=== PATIENT | male | born 1950 | race Caucasian/White ===

== ENCOUNTER → 2016-08-21 | Outpatient (CLI) | payer OTHER, MEDICARE ==
[~2016-08-21] MED LIST: AMINTAB13 PO; AMLO-110 PO; ASPI-435 PO; ATOR-54 PO; LOSA1TAB38 PO; MULT-884 PO; OPTIRAY 320 IV PRN; SILD100T PO
--- NOTE | 2016-08-21 18:07 | DIAGNOSTIC IMAGING REPORT ---
CT OF THE ABDOMEN AND PELVIS WITH CONTRAST CLINICAL HISTORY: Left-sided abdominal pain. Evaluate for acute diverticulitis. COMPARISON STUDY: None. TECHNIQUE: Following IV administration of 115 mL of Optiray-320, axial images of the abdomen and pelvis were obtained from the lung bases to the proximal femurs. Images were reviewed in the axial, sagittal, and coronal planes. IV contrast was administered without complication. Oral contrast was administered. CT DOSE: 1133.07 mGy.cm FINDINGS: Visualized portions of the lower chest demonstrate dilatation of visualized portions of the ascending aorta which measures up to 4.4 cm. No dissection is identified within visualized portions of the aorta. This extensive coronary artery calcification. No pneumatosis, free air or portal venous gas is present. Liver, spleen, adrenal glands, kidneys and pancreas are normal. There is no hydronephrosis. There is no evidence for a bowel obstruction. There is left colon diverticulosis. Note is made of moderate infiltration and wall thickening of the distal descending colon. There is no free air or abscess. Skeletal structures are unremarkable with the exception of degenerative changes within the lumbar spine. IMPRESSION: 1. Acute diverticulitis of the distal descending colon. Moderate associated inflammation. No free air or abscess. 2. Mild dilatation of visualized portions of the ascending aorta, measuring approximately 4.4 cm. A nonemergent CTA of the chest is recommended. Electronically signed by: Justin Wong M.D. 08/21/2016 6:05 PM Dictated Date/Time: 08/21/2016 6:00 PM
== END | disposition home or self-care (01) ==
LOC: C.CTS 15:20
PROVIDERS: ATTEND Internal Medicine Geriatric Medicine
DX: K57.92 Diverticulitis of intestine, part unspecified, without perforation or abscess without bleeding (principal)

== ENCOUNTER → 2016-09-04 | Outpatient (CLI) | payer OTHER, MEDICARE ==
--- NOTE | 2016-09-04 10:12 | DIAGNOSTIC IMAGING REPORT ---
CT ANGIOGRAM OF THE CHEST COMBO CLINICAL HISTORY: Aortic aneurysm. COMPARISON STUDY: Abdominal CT dated 08/21/2016. TECHNIQUE: Before and follow the IV administration of 93 cc of Optiray 320, CT angiogram of the chest was performed from the thoracic inlet to the upper abdomen. Images are reviewed in the axial, sagittal, and coronal planes. 3-D MIPS images are created and assessed. IV contrast was administered without complication. CT DOSE: 1206.48 mGy.cm FINDINGS: Thyroid: Imaged portions of the thyroid gland are normal in size and attenuation. Thoracic aorta: There is mild atherosclerotic calcification of the thoracic aorta. No intracranial hematoma is seen on the unenhanced series. There is mild aneurysmal dilatation of the ascending thoracic aorta which measures up to 4.5 cm in diameter. The remainder of the thoracic aorta is normal in caliber. The mid arch measures up to 3.1 cm, and the descending thoracic aorta measures up to 2.8 cm. No dissection is seen. The arch demonstrates bovine variant anatomy. The arch vessels are widely patent. Heart: The heart is mildly enlarged and there is trace pericardial fluid. The coronary arteries are densely calcified. The pulmonary trunk is normal in caliber. Lungs and pleural spaces: There or 3 mm and 4 mm pulmonary nodules at the left lung base seen on axial images #227 and #234. A 3 mm left apical nodule is seen on image #41. Tiny foci of pleural based nodularity are noted along the left major fissure. No airspace consolidation or pleural effusion is identified. There is bibasilar atelectasis. The trachea and central airways are clear. Mediastinum: There is no mediastinal lymphadenopathy. Laura: Clear. Axillae: There is no axillary lymphadenopathy. Upper abdomen: There is a small hiatal hernia. The partially visualized kidneys demonstrate cortical atrophy. There are scattered diverticula identified in the partially imaged left colon. Skeletal structures: No lytic or blastic bony lesions are seen. IMPRESSION: 1. There is mild aneurysmal dilatation of the ascending thoracic aorta which measures up to 4.5 cm in diameter. 2. The remainder of the thoracic aorta is normal in caliber. No dissection is seen. 3. Cardiomegaly. 4. There is no airspace consolidation or pleural effusion. 5. There are small pulmonary and pleural-based nodules measuring up to 4 mm. These are indeterminant but of low suspicion and can be followed as per the Fleischner criteria if clinically warranted. See below. 6. Additional changes as above. Please refer to below summary of Fleischner criteria recommendations for follow-up of incidental CT nodules (Masood Cardona, Guidelines for management of small pulmonary nodules detected on CT scans: A statement from the Fleischner Society, Radiology 237: [phone].) Low Risk Patient: Minimal or no smoking or other known risk factors for malignancy <=4 mm: No follow-up needed. >4-6 mm: Initial follow-up CT at 12 months; if unchanged, no further follow-up. >6-8 mm: Initial follow-up CT at 6-12 months then at 18-24 months if no change. >8 mm: Follow-up CT at \R\3, 9, 24 months, or PET and/or biopsy. High Risk Patient: History of smoking or other known risk factors <=4 mm: Follow-up at 12 months; if unchanged, no further follow-up. >4-6 mm: Initial follow-up CT at 6-12 months then at 18-24 months if no change. >6-8 mm: Initial follow-up CT at 3-6 months then at 9-12 and 24 months if no change. >8 mm: Same as low risk patient. Note: Nodule size measured as average of length and width. Ground glass or partly solid nodules may require longer follow-up to exclude indolent adenocarcinoma. Electronically signed by: Brian Villarreal M.D. 09/04/2016 10:10 AM Dictated Date/Time: 09/04/2016 10:00 AM
== END | disposition home or self-care (01) ==
LOC: C.CTS 09:23
PROVIDERS: ATTEND Internal Medicine
DX: I71.9 Aortic aneurysm of unspecified site, without rupture (principal)

== ENCOUNTER → 2016-10-04 | Outpatient (CLI) | payer OTHER, MEDICARE ==
[~2016-10-04] MED LIST changes: -OPTIRAY 320 IV PRN
[2016-10-04 10:50] LABS: BASO % 0.8 %; BASO ABS # 0.04 K/uL (0-0.2); COMPLETE YES; EOS % 4.1 %; HEMATOCRIT 40.4 % (42-52); IG% 0.4 %; LYMPH ABS # 1.28 K/uL (1.2-3.4); MEAN CELL VOLUME 93.1 fL (80-100); MEAN CORPUSCULAR HEMOGLOBIN 32.9 pg (25-34); MEAN CORPUSCULAR HGB CONC 35.4 g/dl (32-36); MEAN PLATELET VOLUME 10.3 fL (7.4-10.4); NEUT % 61.7 %; PLATELET COUNT 204 K/uL (130-400); RED BLOOD COUNT 4.34 M/uL (4.7-6.1); WHITE BLOOD COUNT 5.33 K/uL (4.8-10.8)
[2016-10-04 11:22] LABS: ALT/SGPT 36 U/L (12-78); AST/SGOT 30 U/L (15-37); BLOOD UREA NITROGEN 27 mg/dl (7-18); BUN/CREATININE RATIO 28.3 (10-20); CALCIUM 9.3 mg/dl (8.5-10.1); CARBON DIOXIDE 25 mmol/L (21-32); CHLORIDE 105 mmol/L (98-107); CHOLESTEROL 153 mg/dl (0-200); CREATININE 0.95 mg/dl (0.60-1.40); GLUCOSE 104 mg/dl (70-99); POTASSIUM 4.3 mmol/L (3.5-5.1); SODIUM 138 mmol/L (136-145); TRIGLYCERIDES 185 mg/dl (0-150); VERY LOW DENSITY LIPOPROT CALC 37 mg/dl
[2016-10-04 11:29] LABS: ALB/GLOB RATIO 1.1 (0.9-2); ALKALINE PHOSPHATASE 99 U/L (45-117); CHOLESTEROL/HDL RATIO 2.8; HDL CHOLESTEROL 55 mg/dl; LDL CHOLESTEROL CALCULATED 61 mg/dl
== END | disposition home or self-care (01) ==
LOC: C.LABBC 08:02
PROVIDERS: ATTEND Internal Medicine
DX: R94.31 Abnormal electrocardiogram [ECG] [EKG] (principal)

== ENCOUNTER → 2017-04-03 | Outpatient (CLI) | payer OTHER, MEDICARE ==
--- NOTE | 2017-04-03 09:11 | DIAGNOSTIC IMAGING REPORT ---
(CHEST) THORAX WITHOUT CT DOSE: 597.59 mGycm HISTORY: Aneurysm. Pulmonary nodule. ASCENDING AORTIC ANEURYSM TECHNIQUE: Multiaxial CT images of the chest were performed without contrast. A dose lowering technique was utilized adhering to the principles of ALARA. COMPARISON: 09/04/2016 FINDINGS: 4.5 cm aneurysmal dilatation a sending thoracic aorta. This is unchanged in the prior study. Micronodularity within the lungs unaltered. There are no new or interval findings. There is no significant mediastinal or hilar adenopathy. There is calcification of coronary arterial vasculature. IMPRESSION: 1. Stable evaluation of chest compared to the prior study. 2. Stable 4.5 cm aneurysmal dilatation a sending thoracic aorta. 3. Stable micronodular change of the chest with no new interval or progressive process. The above report was generated using voice recognition software. It may contain grammatical, syntax or spelling errors. Electronically signed by: Damon Guevara M.D. 04/03/2017 9:10 AM Dictated Date/Time: 04/03/2017 9:06 AM
== END | disposition home or self-care (01) ==
LOC: C.CTS 08:39
PROVIDERS: ATTEND Surgery Vascular Surgery
DX: I71.2 Thoracic aortic aneurysm, without rupture (principal)

== ENCOUNTER → 2017-10-21 | Outpatient (CLI) | payer OTHER, MEDICARE ==
[2017-10-21 11:57] LABS: BASO % 0.3 %; BASO ABS # 0.03 K/uL (0-0.2); EOS % 1.8 %; EOS ABS # 0.17 K/uL (0-0.5); HEMATOCRIT 40.2 % (42-52); HEMOGLOBIN 13.8 g/dL (14.0-18.0); IG# 0.05 K/uL (0.00-0.02); MEAN CELL VOLUME 94.4 fL (80-100); MEAN CORPUSCULAR HEMOGLOBIN 32.4 pg (25-34); MEAN CORPUSCULAR HGB CONC 34.3 g/dl (32-36); MEAN PLATELET VOLUME 10.7 fL (7.4-10.4); MONO % 10.1 %; MONO ABS # 0.95 K/uL (0.11-0.59); NEUT % 71.3 %; NEUT ABS # 6.69 K/uL (1.4-6.5); PLATELET COUNT 159 K/uL (130-400); RED CELL DISTRIBUTION WIDTH CV 13.8 % (11.5-14.5); RED CELL DISTRIBUTION WIDTH SD 47.3 fL (36.4-46.3); WHITE BLOOD COUNT 9.39 K/uL (4.8-10.8)
[2017-10-21 12:13] LABS: ALBUMIN 3.8 gm/dl (3.4-5.0); ALKALINE PHOSPHATASE 90 U/L (45-117); ALT/SGPT 25 U/L (12-78); AST/SGOT 22 U/L (15-37); BLOOD UREA NITROGEN 21 mg/dl (7-18); CALCIUM 9.1 mg/dl (8.5-10.1); CARBON DIOXIDE 24 mmol/L (21-32); CHOLESTEROL 154 mg/dl (0-200); CREATININE 0.89 mg/dl (0.60-1.40); GLUCOSE 95 mg/dl (70-99); LDL CHOLESTEROL CALCULATED 54 mg/dl; POTASSIUM 4.2 mmol/L (3.5-5.1); SODIUM 136 mmol/L (136-145); TOTAL PROTEIN 7.4 gm/dl (6.4-8.2)
== END | disposition home or self-care (01) ==
LOC: C.LABBC 07:53
PROVIDERS: ATTEND Internal Medicine
DX: R91.8 Other nonspecific abnormal finding of lung field (principal); Z11.59 Encounter for screening for other viral diseases

== ENCOUNTER → 2017-10-30 | Outpatient (CLI) | payer OTHER, MEDICARE ==
--- NOTE | 2017-10-30 09:02 | DIAGNOSTIC IMAGING REPORT ---
(CHEST) THORAX WITHOUT CLINICAL HISTORY: 66 years-old Male presenting with R91.8 Pulmonary nodules. TECHNIQUE: Multidetector CT imaging of the chest was performed without the use of intravenous contrast. IV contrast: None. A dose lowering technique was used consistent with the principles of ALARA (as low as reasonably achievable). COMPARISON: 04/03/2017. CT DOSE (mGy.cm): The estimated cumulative dose is 652.06 mGy.cm. FINDINGS: Deck Supervisor topogram: Unremarkable. On soft tissue windows, normal thyroid and thoracic inlet. No axillary, supraclavicular, or mediastinal lymphadenopathy. Evaluation of the cheyanne limited without intravenous contrast. Atherosclerosis of the aorta. Ascending aorta measures 4.5 cm in diameter, which is unchanged. Normal heart size. Coronary artery calcification. No pericardial or pleural effusion. Borderline hepatic steatosis. On lung windows, dependent subpleural reticulation and bandlike opacities. This is greater in the right lower lobe but noted to a lesser extent in the left lower lobe. This is unchanged from prior and may indicate chronic postinfectious or postinflammatory scarring. Subtle suggestion of bronchiectasis in the posterior basal and medial basal right lower lobe. Punctate solid fissural nodule in the right lower lobe (series 4 image 168), unchanged. No new nodule. Central airways patent. On bone windows, degenerative changes of the spine. IMPRESSION: 1. Stable subpleural dependent reticulation and bandlike opacities, which likely relate to chronic postinfectious or postinflammatory scarring. This is further evidenced by subtle bronchiectasis in the posterior basal and medial basal right lower lobe. No acute intrathoracic pathology. 2. Stable minimal punctate pulmonary nodules. No new nodule. 3. Stable ectasia of the ascending aorta, measuring 4.5 cm in diameter. Electronically signed by: Eulogio Shi M.D. 10/30/2017 9:01 AM Dictated Date/Time: 10/30/2017 8:53 AM
== END | disposition home or self-care (01) ==
LOC: C.CTS 08:23
PROVIDERS: ATTEND Internal Medicine
DX: R91.8 Other nonspecific abnormal finding of lung field (principal)

== ENCOUNTER 2022-12-28 06:00 | Observation (INO) ==
--- NOTE | 2022-11-20 10:35 | PAT Medication Instructions ---
Medication Instructions Date of Service November 20, 2022 Home Medications Medication Instructions Recorded celecoxib 200 mg capsule 200 mg PO DAILY PRN pain #30 caps 06/26/21 celecoxib 200 mg capsule 200 mg PO DAILY PRN pain amlodipine 10 mg tablet 10 mg PO QAM aspirin 81 mg tablet,delayed release 81 mg PO QAM atorvastatin 40 mg tablet 40 mg PO QAM losartan 100 mg tablet 100 mg PO QAM tramadol 50 mg tablet 50 mg PO Q8H PRN pain ASK your surgeon for instructions celecoxib 200 mg capsule 200 mg PO DAILY PRN pain DO NOT take the morning of surgery losartan 100 mg tablet 100 mg PO QAM Take morning of surgery With a small sip of water, OTHERWISE NOTHING TO EAT OR DRINK AFTER MIDNIGHT: amlodipine 10 mg tablet 10 mg PO QAM aspirin 81 mg tablet,delayed release 81 mg PO QAM (continue as normal unless told otherwise by surgeon) atorvastatin 40 mg tablet 40 mg PO QAM tramadol 50 mg tablet 50 mg PO Q8H PRN pain (if needed) Other Notes If you have any questions please call us at [phone] or [phone] or [phone] or [phone]
--- NOTE | 2022-11-28 11:42 | Anesthesiology Consultation ---
Date of Service November 28, 2022 Assessment & Plan (1) Encounter for pre-operative examination: Chart Review Chart Review: Acceptable Risk for Surgery and Patient seen in Pre Admission Testing -Pt is NOT an Outpatient Joint candidate due to comorbidities Per PAT appt on 11/28/22, patient denies any recent travel or large group activities. Pt is vaccinated for Covid. Will leave to surgeon's discretion if preop Covid testing needed. Educated on importance of using Covid precautions one week prior to surgery Last seen by PCP 10/15/22= HypertensionBP at goal. Aortic root/ascending aortic dilationdiscussed echocardiogram February 2022. Suggested follow-up with vascular surgerypatient will consider. Discussed repeat chest CT. Hyperlipidemiacoronary artery calcification by CTincrease atorvastatin. LUTSno formal urology evaluation in some time. Suggested referral back to urologypatient agrees. Advanced arthritis right hipfollowing with orthopedics. Unfortunately needs replacement. Patient will discuss with Ortho. Follow-up in 6-7 months. (Discussed with Dr. Arzola- patient can proceed as scheduled) Teaching & Discussion Pre-Anesthesia Teaching/Discussion Notes: Instructed NPO after midnight before surgery,except medications with 15 cc of water. Medication instructions provided according to the PAT guidelines. History Surgery Operation Date: 12/28/22 11:45 Proposed Procedures p Right Total Hip Arthroplasty Anterior - Gil Laws DO Height/Weight Height: 5 ft 9 in Weight: 103.6 kg Allergies Allergy/AdvReac Type Severity Reaction Status Date / Time No Known Allergies Allergy Verified 11/20/22 09:42 Medications Home Medications Medication Instructions Recorded Confirmed Last Taken celecoxib 200 mg capsule 200 mg PO DAILY PRN pain #30 caps 06/26/21 11/20/22 Unknown amlodipine 10 mg tablet 10 mg PO QAM 11/20/22 11/20/22 Unknown aspirin 81 mg tablet,delayed 81 mg PO QAM 11/20/22 11/20/22 Unknown release atorvastatin 40 mg tablet 40 mg PO QAM 11/20/22 11/20/22 Unknown losartan 100 mg tablet 100 mg PO QAM 11/20/22 11/20/22 Unknown tramadol 50 mg tablet 50 mg PO Q8H PRN pain 11/20/22 11/20/22 Unknown tramadol 50 mg tablet 50 mg PO Q6H PRN pain #30 tabs 11/26/22 Unknown Past Medical History Medical History (Updated 11/29/22 @ 09:38 by Krystal Winter PA-C) Anemia BORDERLINE Coronary artery calcification Noted on CT scan- atorvastatin increased to 40mg daily 09/2022 Dilatation of thoracic aorta 4.5cm in diameter per 02/2022 ECHO (ascending aortic aneurysm 4.5cm on 2019 CT scan- unchanged from prior- aneurysm stable) Mildly dilated aortic arch (4.0cm) per 02/2022 ECHO Enlarged prostate without lower urinary tract symptoms (luts) HTN (hypertension) Hyperlipidemia Pulmonary nodules ASYMPTOMATIC/DX YRS AGO/INCIDENTAL FINDING/NO KNOWN RE SCAN Exercise / Class Metabolic Activity III < 4 Walking/Shop/Light housework (no chest pain or SOB with flat surface ambulation- started using cane recently ) Past Family History Family History Father , AGE 83 Myocardial infarction Heart disease Coronary heart disease Hypertension Mother , AGE 84 COPD (chronic obstructive pulmonary disease) Congestive heart failure Diabetes Hypertension Sister Diverticulitis Skin cancer Brother Hypertension Denies family history of Ovarian cancer Prostate cancer Dementia Breast cancer Lung cancer Colorectal cancer Stroke Past Surgical History Surgical History H/O tooth extraction History of colonoscopy History of surgery SKIN LESIONS/CYSTS REMOVED- BENIGN Past Anesthesia History No Hx of Anesthesia Complications (no hx of GA ) and No Family Hx of Anesthesia Complications History of PONV No Hx of PONV and No Hx of Motion Sickness Social History Smoking Status: Former smoker tobacco type: cigarettes and cigars Do You Dip or Chew Tobacco: No Smoking End Date: 15 YRS AGO Hx Alcohol Use: Yes Alcohol type: hard liquor alcohol intake frequency: other Alcohol Intake Frequency Comment: 2-3 A WEEK Hx Substance Use: No substance use type: does not use Review of Systems Patient denies chest pain, shortness of breath, dyspnea on exertion, reflux, cough, wheezing, palpitations. No hx of seizures, stroke, SC, apnea/snoring. No hx of blood clots or blood transfusions Physical Exam Vital Signs VITALS BP 136/82 P 90 TEMP 98.3 SP02 98% R 16ESP Constitutional no acute distress ENMT Mouth: + small oral opening; no TMJ clicking Thyromental Distance: > or= 3.5 Finger Breadths (4.0) Mallampati Class: III Missing bottom molars Bottom partial denture Neck + limited neck extension (significant) Respiratory normal respiratory effort; no respiratory distress Auscultation: lungs clear to auscultation bilaterally; no wheezes Cardiovascular Rate/Rhythm: regular rate and regular rhythm Heart Sounds: no murmur Vessels: no carotid bruit Musculoskeletal Spine: no pain with cervical ROM (only stiffness) Extremities: extremities normal to inspection Psychiatric Orientation: alert Lab Results Anesthesia Preop Results Results Anesthesia Widget: WBC 8.71 K/ul (4.8-10.8) 11/28/22 Hgb 13.4 g/dl (14.0-18.0) L 11/28/22 Hct 38.5 % (42.0-52.0) L 11/28/22 Plt 179 K/uL (130-400) 11/28/22 Na 137 mmol/L (136-145) 11/28/22 K 4.3 mmol/L (3.5-5.1) 11/28/22 Cl 104 mmol/L (98-107) 11/28/22 CO2 26 mmol/L (21-32) 11/28/22 BUN 24 mg/dl (6-23) H 11/28/22 Creat 0.99 mg/dl (0.6-1.4) 11/28/22 Glucose Level 81 mg/dl (70-99(Fasting)) 11/28/22 PT 10.4 Seconds (9.0-12.0) 11/28/22 PTT 26.6 Seconds (21.0-31.0) 11/28/22 INR 0.9 (0.9-1.1) 11/28/22 HA1c 5.4 % (4.5-5.6) 10/16/22 Blood Type O Positive 11/28/22 Antibody Screen NEGATIVE 11/28/22 Testing Electrocardiogram Date: 11/28/22 Findings: + NSR @ (81bpm ) Left axis deviation Chest X-Ray Date: 11/28/22 FINDINGS: Lung volumes are normal. Lungs are clear. There is no pneumothorax or pleural effusion. Mild cardiomegaly. Mediastinal contours are normal. There is no evidence for pulmonary edema. IMPRESSION: No acute cardiopulmonary findings. Stable cardiomegaly. Echocardiogram Date: 03/06/22 EF: 55-60% LV Function: normal RWMA: + none Other Findings: + LVH (borderline/concentric) and + diastolic dysfunction (Grade I ) Valvular Disease: + MR (Mild MR ) Mild AR Mildly dilated ascending aorta (4.5 cm in diameter) Mildly dilated aortic arch (4.0 cm in diameter) COVID-19 Risk Screen Screening Information COVID-19 Screen Date: 11/28/22 Exposure 21 Days Family/Household +COVID Last 21 Days: No Exposure 10 Days Any COVID Exposure Last 10 Days: No Symptoms Last 10 Days Experienced COVID Sx Last 10 Days: No + COVID 0-90 Days COVID + in Last 0-90 Days: No Risk Plan COVID Risk Plan: No Risk Identified Patient Education COVID Preop Screening Education Complete: Yes
--- NOTE | 2022-12-27 06:42 | History & Physical Report ---
Date of Service December 27, 2022 Assessment & Plan (1) Arthritis of right hip: We will proceed with a right anterior total hip arthroplasty. Postoperatively he will be started on aspirin for DVT prophylaxis and kept overnight in the hospital for postop medical management. He plans to use energy physical therapy upon discharge. History of Present Illness Chief Complaint: Osteoarthritis of the right hip. Primary Care Provider: Eulogio Parikh MD Brian is a pleasant 71-year-old male who has been dealing with chronic increasing right hip pain. It has been going on for years. X-rays have shown advanced arthritis of the hip. He is really struggling with his hip. He is having trouble putting on his shoes. He is having trouble walking long distances. After failing conservative treatment, he has elected proceed with a right anterior total of arthroplasty. Allergies Allergy/AdvReac Type Severity Reaction Status Date / Time No Known Allergies Allergy Verified 11/20/22 09:42 Home Medications Medication Instructions Recorded Confirmed Type celecoxib 200 mg capsule 200 mg PO DAILY PRN pain #30 caps 06/26/21 11/20/22 Rx amlodipine 10 mg tablet 10 mg PO QAM 11/20/22 11/20/22 History aspirin 81 mg tablet,delayed 81 mg PO QAM 11/20/22 11/20/22 History release atorvastatin 40 mg tablet 40 mg PO QAM 11/20/22 11/20/22 History losartan 100 mg tablet 100 mg PO QAM 11/20/22 11/20/22 History tramadol 50 mg tablet 50 mg PO Q8H PRN pain 11/20/22 11/20/22 History tramadol 50 mg tablet 50 mg PO Q6H PRN pain #30 tabs 11/26/22 Rx tramadol 50 mg tablet 50 mg PO Q6H PRN pain #30 tabs 12/10/22 Rx tramadol 50 mg tablet 50 mg PO Q6H PRN pain #30 tabs 12/18/22 Rx Past Med/Surg History Medical History Anemia BORDERLINE Coronary artery calcification Noted on CT scan- atorvastatin increased to 40mg daily 09/2022 Dilatation of thoracic aorta 4.5cm in diameter per 02/2022 ECHO (ascending aortic aneurysm 4.5cm on 2019 CT scan- unchanged from prior- aneurysm stable) Mildly dilated aortic arch (4.0cm) per 02/2022 ECHO Enlarged prostate without lower urinary tract symptoms (luts) HTN (hypertension) Hyperlipidemia Pulmonary nodules ASYMPTOMATIC/DX YRS AGO/INCIDENTAL FINDING/NO KNOWN RE SCAN Surgical History H/O tooth extraction History of colonoscopy History of surgery SKIN LESIONS/CYSTS REMOVED- BENIGN Family History Father , AGE 83 Myocardial infarction Heart disease Coronary heart disease Hypertension Mother , AGE 84 COPD (chronic obstructive pulmonary disease) Congestive heart failure Diabetes Hypertension Sister Diverticulitis Skin cancer Brother Hypertension Denies family history of Ovarian cancer Prostate cancer Dementia Breast cancer Lung cancer Colorectal cancer Stroke Social History Smoking Status: Former smoker Tobacco Type: Cigarettes and Cigars Age Started Using Tobacco: 9; Age Quit Using Tobacco: 58; packs per day: 0.5; Second Hand Exposure: No; Do You Dip or Chew Tobacco: No; Hx Alcohol Use: Yes Alcohol type: hard liquor Alcohol type Comment: 3-4 MARTINIS DAILY Alcohol Intake Frequency: 4 or More x per/Week Hx Substance Use: No Preferred Language: [place] Citizen Communication Ability: Effective Visual Impairment: Diminished Hearing Ability: Normal 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 Beliefs That Will Affect Care: None marital status: Current Living Situation: Spouse current occupational status: retired current occupation: retired pharmaceutical salesman How many Children do You have: 2 Feels Safe at Home: Yes Childhood Exposure to Second-Hand Smoke: Yes Diet: vegetarian caffeine: Yes (drinks coffee daily ) Dental Care, Regularly: Yes Physical Activity Frequency: Daily Physical Activity Frequency Comment: REGULARLY, swims Seatbelt Use: always Sunscreen Use: Yes Assistive Devices: Other Review of Systems All systems reviewed & are unremarkable except as noted in HPI & below. Physical Exam On physical examination of the right hip, he has trouble lying flat. He has decreased range of motion. He has pain with internal and external rotation.. Constitutional WD/WN, vitals as above Eyes PERRL, conjunctivae normal, anicteric sclerae ENMT external ear and nose normal, oropharynx normal Neck trachea midline, no thyromegaly Respiratory normal respiratory effort, lungs clear to auscultation Cardiovascular RRR, no murmur, no edema Gastrointestinal (Abdomen) normal bowel sounds, soft, nontender, no hepatosplenomegaly Skin no rashes, warm and dry Psychiatric A+Ox3, euthymic affect Results & Data Results & Data Laboratory Results . Diagnostic Findings X-rays of the right hip show advanced osteoarthritis with joint space narrowing, osteophyte formation, and [id number] articulation. PG Care Time/CCT Total # of Minutes Spent Total Time Spent with Patient: Total time spent is greater than 50% in coordination of care (as documented) at patient's floor/unit and/or counseling patient: Coding Level of Care Code None Diagnoses Arthritis of right hip M16.11
[~2022-12-28 06:00] MED LIST changes: +ACETAMINOPHEN 500 MG TAB PO SCH; -AMINTAB13 PO; -AMLO-110 PO; -ASPI-435 PO; -ATOR-54 PO; +FAMOTIDINE 20 MG TAB PO SCH; +GABAPENTIN 600 MG DOSE PO SCH; -LOSA1TAB38 PO; +LR 500ML BOLUS, THEN 15ML/HR IV SCH; +LR 60ML/HR IV SCH; -MULT-884 PO; +ORTHO JOINT MIX INFIL SCH; -SILD100T PO; +TRANEXAMIC ACID 1,000 MG **IV Intra-op IV SCH; +TRANEXAMIC ACID 1,000 MG **IV Pre-op IV SCH; +ceFAZolin 2000MG 2,000 MG/15 ML SYR IV SCH; +dexAMETHasone 4 MG TAB PO SCH
[2022-12-28] MEDS ORDERED: BUPIVACAINE 0.5 % 5 MG/1 ML PF 10ML VIAL ONE (06:31)
--- NOTE | 2022-12-28 06:49 | History & Physical Bridge Note ---
Date of Service December 28, 2022 History & Physical Bridge Note I have examined the patient, reviewed the History & Physical and in the interval since the performance of the History & Physical I have noted the following changes of clinical significance: no changes noted
[2022-12-28] MEDS ORDERED: PROPOFOL IV EMULSION 10 MG/ML 20 ML VIAL IV ONE ×2 (07:19→09:17)
[2022-12-28] MEDS ORDERED: LIDOCAINE 2% 2 ML VIAL/AMP(20MG/ML) INFIL ONE (07:19)
[2022-12-28] MEDS ORDERED: MIDAZOLAM HCL 1 MG/ML 2ML VIAL ONE (07:19)
[2022-12-28] MEDS ORDERED: fentaNYL citrate PF 100 MCG/2 ML VIAL ONE (07:19)
[2022-12-28] MEDS ORDERED: ORTHO JOINT ANESTHETIC ONE (07:31)
[2022-12-28] MEDS ORDERED: PROMETHAZINE HCL 12.5 MG in SODIUM CHLORIDE 0.9% 50 ML IV PRN (08:10)
[2022-12-28] MEDS ORDERED: ONDANSETRON INJ 2 MG/ML 2 ML VIAL IV PRN ×2 (08:10→10:46)
[2022-12-28] MEDS ORDERED: HYDROmorphone INJ 2 MG/ML SYR/VIAL IV PRN (08:10)
[2022-12-28] MEDS ORDERED: ePHEDrine sulfate 50 MG/ML AMP IV PRN (08:10)
[2022-12-28] MEDS ORDERED: fentaNYL citrate PF 100 MCG/2 ML VIAL IV PRN (08:10)
[2022-12-28] MEDS ORDERED: ATROPINE SULFATE 0.1 MG/ML 10ML SYR IV PRN (08:10)
[2022-12-28] MEDS ORDERED: ePHEDrine sulfate 50 MG/ML AMP ONE (08:43)
--- NOTE | 2022-12-28 09:35 | Operative Report ---
PG Post Operative Report Pre & Post Diagnosis Operation Date: 12/28/22 08:00 Pre-Op Diagnosis: Right Hip Degenerative Joint Disease Post-Op Diagnosis: Right Hip Degenerative Joint Disease I identified the patient and participated in the time-out.: Yes Procedure Operation Date: 12/28/22 08:00 Actual Procedures p Right Total Hip Arthroplasty Anterior(Right) - Gil Laws DO Surgeon Gil Laws DO Real Property Appraiser Gil Silva PA-C Estimated Blood Loss 300 Findings Consistent with Post-Op Diagnosis Specimens Right femoral head Description of Procedure Implants used I used a ZimmerBiomet total hip arthroplasty system with a size 6 standard offset Avenir Complete stem, a 56 mm G7 cup with a 25mm screw, an E1 poly ethylene liner, a 40 mm ceramic head with a +7 neck. Brian arrived at the hospital for the above procedure. He was seen in the preoperative holding area and the operative extremity was identified and signed. He was given a spinal anesthetic, a preoperative antibiotic, and TXA. He was then taken back to the operating room and laid on the table in the supine position. He was given basic sedation. The operative leg was secured to a Puristst leg positioner. The hip was then prepped and draped in sterile fashion. A timeout was done and the patient and the operative extremity was properly identified. An anterior approach was used. Dissection was taken down through the fascia and the tensor muscle belly was retracted laterally and the rectus was retracted medially. The circumflex vessels were identified and ligated. The capsule was then incised and tagged for later repair. The femoral neck was then cut and the femoral head was removed. The acetabulum was exposed. Time was spent doing a complete circumferential labral release. Sequential reaming of the acetabulum up to a size 55 reamer was done. Final reamings were done under fluoroscopy to ensure appropriate version. A Biomet 56 mm G7 cup was then impacted into place. A single 25 mm screw was placed. The E1 polyethylene liner was then snapped into place. Surrounding soft tissues were then injected with 100 cc of an orthopedic pain control cocktail. The proximal femur was then exposed. Sequential broaching up to a size 6 broach was done. Off that broach a size 40 head with a +7 neck was trialed. The hip was reduced and fluoroscopic images showed anatomic alignment of the implants in acceptable length. The broach was removed. The final size 6 standard offset Avenir Complete stem was then impacted into place. A ceramic 40 mm head with a +7 neck was then impacted onto the stem and the hip was reduced. Final fluoroscopic images showed anatomic alignment of the hip. The capsule was then closed with #1 Vicryl suture. A dilute betadyne lavage was then done for 3 minutes. The joint was then irrigated with normal saline solution. The fascia was closed with #1 PDS suture. Skin was closed with 2-0 Vicryl, lesli, and a Silverlon dressing. He was then transferred to a hospital bed and taken to the post anesthesia care unit in stable condition. He tolerated the procedure well. Gil Silva PA-C, was present for the entire procedure. He was critical for patient positioning, prepping, draping, retraction exposure, wound closure and application of sterile dressing. I attest to the content of the Intraoperative Record and any orders documented therein. Any exceptions are noted below.
--- NOTE | 2022-12-28 10:00 | Fluoroscopy Report ---
FL hip RT 1V CLINICAL HISTORY: RIGHT ANTERIOR HIP COMPARISON STUDY: None. FLUOROSCOPY TIME: 17 seconds FLUOROSCOPY IMAGES: 1 Ka,r: 2.9 mGy FINDINGS: There is a right total arthroplasty. Hardware appears intact. No fracture or dislocation. IMPRESSION: Fluoroscopic assistance as above. ACT 112: Negative or not required by law. Electronically signed by: Tobias Ingram M.D. 12/28/2022 9:59 AM
--- NOTE | 2022-12-28 10:24 | Anesthesiology Progress Note ---
Date of Service December 28, 2022 Anesthesia Post Procedure Vital Signs Vital Signs: Temp Pulse Pulse Resp BP Pulse Ox O2 Del Method 12/28/22 10:15 84 17 111/76 99 Room Air 12/28/22 10:05 85 14 124/73 100 Oxymask 12/28/22 09:59 36.3 C L 90 15 114/70 99 Oxymask 12/28/22 06:25 36.6 C 103 H 21 178/104 H 96 Room Air O2 Flow Rate 12/28/22 10:15 12/28/22 10:05 13 12/28/22 09:59 13 12/28/22 06:25 Pain Intensity Right Hip: Pain Intensity: 9 Transfer of Care Handoff Completed per policy Notes Mental Status: alert / awake / arousable and participated in evaluation Nausea / Vomiting: adequately controlled Pain: adequately controlled Airway Patency, RR, SpO2: stable & adequate BP & HR: stable & adequate Hydration State: stable & adequate Neuraxial Anesthesia: was administered and sensory block is resolving Anesthetic Complications: no major complications apparent and Pt Satisfied with anesthetic care
--- NOTE | 2022-12-28 10:29 | XRay Report ---
AP PELVIS, CROSSTABLE LATERAL RIGHT HIP History: Right total hip arthroplasty. Degenerative arthritis. Postop. FINDINGS: The patient is status post a right total hip arthroplasty. The hardware is intact. No fract ure or dislocation. Skin lesli are in place. IMPRESSION: Right total hip arthroplasty. No evidence for hardware complication ACT 112: Negative or not required by law. Electronically signed by: Tobias Ingram M.D. 12/28/2022 10:26 AM
[2022-12-28] MEDS ORDERED: NALOXONE HCL 0.4 MG/1 ML VIAL/CARP IV PRN (10:46)
[2022-12-28] MEDS ORDERED: MAGNESIUM HYDROXIDE SUSP 30 ML UDC PO PRN (10:46)
[2022-12-28] MEDS ORDERED: METOCLOPRAMIDE HCL INJ 5 MG/ML 2 ML VIAL IV PRN (10:46)
[2022-12-28] MEDS ORDERED: HYDROmorphone INJ 0.5 MG/0.5 ML SYR IV PRN (10:46)
[2022-12-28] MEDS ORDERED: bisacodyL 10 MG SUPP PR PRN (10:46)
[2022-12-28] MEDS: SODIUM CHLORIDE 0.9% 1000ML 1,000 ML IV SCH (11:37)
[2022-12-28] MEDS: KETOROLAC TROMETHAMINE 15 MG/ML VIAL IV SCH ×3 (12:18→21:50)
[2022-12-28] MEDS: ACETAMINOPHEN 500 MG TAB PO SCH ×2 (13:52→21:49)
[2022-12-28] MEDS: oxyCODONE HCL IR 5 MG TAB (IMMEDIATE RELEASE) PO PRN ×2 (13:54→21:50)
[2022-12-28] MEDS: ceFAZolin 2000MG 2,000 MG/15 ML SYR IV SCH (17:03)
[2022-12-28] MEDS: DOCUSATE SODIUM 100 MG CAP PO SCH (20:28)
[2022-12-28] MEDS: ASPIRIN 81 MG ECTAB PO SCH (20:29)
[2022-12-28] MEDS ORDERED: SENNA 8.6 MG TAB PO SCH (21:00)
[2022-12-29] MEDS: SODIUM CHLORIDE 0.9% 1000ML 1,000 ML IV SCH (00:03)
[2022-12-29] MEDS: ceFAZolin 2000MG 2,000 MG/15 ML SYR IV SCH (00:05)
[2022-12-29] MEDS: ACETAMINOPHEN 500 MG TAB PO SCH (05:06)
[2022-12-29] MEDS: KETOROLAC TROMETHAMINE 15 MG/ML VIAL IV SCH (05:09)
[2022-12-29] MEDS: oxyCODONE HCL IR 5 MG TAB (IMMEDIATE RELEASE) PO PRN (05:22)
--- NOTE | 2022-12-29 07:56 | Orthopedic Progress Note ---
Date of Service December 29, 2022 Assessment & Plan (1) Status post right hip replacement: Overall he is doing very well. He is not having much pain in the right hip. He is on aspirin for DVT prophylaxis. He will be seen by physical therapy today for ambulation and range of motion exercises. He can be discharged home later today. He will follow-up with orthopedics in 2 weeks. Tena Torres was seen and examined at bedside this morning. Overall he is doing very well. He is not having much pain in the right hip. He has been up and ambulating to the bathroom. He has no complaints.. Review of Systems All systems reviewed & are unremarkable except as noted in HPI & below. Physical Exam On physical examination of the right hip, the dressing is clean and dry. His leg is out full extension. He has active dorsiflexion plantarflexion of his right ankle.. Results & Data Results & Data Laboratory Results . Diagnostic Findings Postoperative x-rays of the right hip show the prosthesis to be in anatomic alignment without any evidence of fracture, desiccation, or loosening.. PG Care Time/CCT Total # of Minutes Spent Total Time Spent with Patient: Total time spent is greater than 50% in coordination of care (as documented) at patient's floor/unit and/or counseling patient: Coding Level of Care Code 31697 Post Operative Follow-Up Diagnoses Status post right hip replacement Z96.641
--- NOTE | 2022-12-29 07:57 | Discharge Summary ---
Date of Service December 29, 2022 Admission HPI (Per Admitting) Brian is a pleasant 71-year-old male who has been dealing with chronic increasing right hip pain. It has been going on for years. X-rays have shown advanced arthritis of the hip. He is really struggling with his hip. He is having trouble putting on his shoes. He is having trouble walking long distances. After failing conservative treatment, he has elected proceed with a right anterior total of arthroplasty. Admission Exam (Per Admitting) On physical examination of the right hip, he has trouble lying flat. He has decreased range of motion. He has pain with internal and external rotation.. Principal Diagnosis Same as "Discharge Diagnosis" noted below under Discharge Instructions. Discharge Exam On physical examination of the right hip, the dressing is clean and dry. His leg is out full extension. He has active dorsiflexion plantarflexion of his right ankle.. Discharge Data Procedures Performed Operation Date: 12/28/22 08:00 Actual Procedures p Right Total Hip Arthroplasty Anterior(Right) - Gil Laws DO Ordered Studies 12/28/22 08:00 FL hip RT 1V Routine Hospital Course (1) Status post right hip replacement: On December 28, 2022 Brian arrived at [facility] and underwent a right hip replacement without complication. He had a spinal anesthetic. Postoperatively he was started on aspirin for DVT prophylaxis and transferred to the general orthopedic floors. His hospital course was uneventful. On postop day #1, his vital signs were stable and his pain was well controlled. He was able to participate well with physical therapy doing ambulation and range of motion exercises. He was then discharged home. He will follow-up with orthopedics in 2 weeks. PG Care Time/CCT Total # of Minutes Spent Total Time Spent with Patient: Total time spent is greater than 50% in coordination of care (as documented) at patient's floor/unit and/or counseling patient: Discharge Plan Discharge Items Patient Disposition: Home - Home Health Services Reason For Visit: Right Hip Degenerative Joint Disease Discharge Diagnosis: Right hip replacement Activity: Per Instructions section Non-emergency contact: Surgeon Call non-emergency contact if: your wound has increased redness and your wound has increased drainage Follow-up/Referrals: Eulogio Parikh MD [Physician] - Diet: Regular Addtl Attending Provider Instructions: Activity and Therapy Recommendations: * If you are using [facility] then therapy will be provided at your home until they feel you have accomplished all of your goals. * If you are using [facility] then Physical Therapy will be provided until they feel you are ready to start Outpatient Physical Therapy. * If you are not using home therapy then Outpatient Physical Therapy should start about 3-5 days from your day of surgery. Therapy will last about 6-10 weeks * You were shown a series of exercises in the hospital. Do these exercises three times each day including the exercises you were shown in physical therapy. * Get up and walk several times each day.~ For the first four weeks, try not to stand or walk for more than one hour at a time. If you do stand or walk for more than one hour, you will not hurt anything, but your leg will likely swell.~~ * As you feel comfortable, you may change from the walker or crutches to a cane and~then to independent walking. Medications: * Narcotic You will likely be sent home from the hospital with a prescription for the narcotic pain medication that worked best throughout your stay. * Aspirin Most patients will be required to take Aspirin 81mg twice a day for 6 weeks after surgery. This is obtained [id number] and a prescription is not necessary. * Other medications may be prescribed for specific circumstances. If you have any questions, please call the office at . * Resume previous home medications unless otherwise instructed TEDs/Elastic Stockings: The white elastic stockings help limit swelling and prevent blood clots from forming in your legs. The more you wear them, the more they work. Wear them for six weeks. Dressing Care: Leave the Silverlon dressing in place for 7 days. After 7 days you may remove the dressing. If the incision is not draining then you may leave the lesli open to air. If there is a little bit of drainage or if the lesli are getting stuck on your clothing then cover the incision with a dry dressing. The lesli will be removed at your 2 week follow-up appointment. Showering: You may shower with the Silverlon dressing in place. Do not let the shower spray hit the dressing directly. Pat the Silverlon dressing dry. If the dressing becomes wet underneath, then simply remove the dressing. Keep the incision dry until you are 7 days out from the day of surgery. After 7 days you may remove the Silverlon dressing and shower with the lesli exposed. Let soapy water run over the lesli and pat them dry. Do not scrub or soak the incision. Things To Watch For: * Drainage from the incision site that occurs more than one week after your surgery. * Increased redness at the incision site. * Fever above 102 degrees Fahrenheit. * Unusual chest pain or shortness of breath. * Call [facility] at with any of the above problems Follow-Up Visit: Follow-up with Dr. Laws's PA (Gil Silva) 2-3 weeks after your day of surgery. He will remove your lesli and answer any questions. If you have any additional questions or concerns, Dr Laws is usually in the office at the same time and will be available An appointment was probably scheduled when you signed-up for surgery in the office. If you have any questions call Office Instructions: More detailed instructions as well as Frequently Asked Questions were provided in a folder by our office when you signed-up for surgery. Please review these instructions when you get home. If you have any further questions or concerns, please feel free to call the office at [phone] Pending Studies at Discharge: No Stand-Alone Forms: [facility], Smoking Cessation Medications and DC Order Prescriptions: New oxycodone-acetaminophen 5-325 mg tablet 1 tab PO Q6H PRN (Reason: pain) Qty: 40 0RF Continued celecoxib 200 mg capsule 200 mg PO DAILY PRN (Reason: pain) Qty: 30 2RF Patient Comments: LATELY TAKING MORNING AND EVENING Rx Instructions: Take with food atorvastatin 40 mg tablet 40 mg PO QAM amlodipine 10 mg tablet 10 mg PO QAM losartan 100 mg tablet 100 mg PO QAM Changed aspirin 81 mg Tablet,Delayed Release (Dr/Ec) 81 mg PO BID 42 Days Qty: 0 0RF Discontinued tramadol 50 mg tablet 50 mg PO Q6H PRN (Reason: pain) Qty: 30 0RF tramadol 50 mg tablet 50 mg PO Q6H PRN (Reason: pain) Qty: 30 0RF tramadol 50 mg tablet 50 mg PO Q6H PRN (Reason: pain) Qty: 30 0RF tramadol 50 mg tablet 50 mg PO Q6H PRN (Reason: pain) Qty: 30 0RF tramadol 50 mg tablet 50 mg PO Q8H PRN (Reason: pain) Admission Data Admit Date/Time: 12/28/22 09:58 Attending Provider: Gil Laws Admit Provider: Gil Laws Primary Care Provider: PCP,SHANEL
[2022-12-29] MEDS: DOCUSATE SODIUM 100 MG CAP PO SCH (07:59)
[2022-12-29] MEDS: ASPIRIN 81 MG ECTAB PO SCH (07:59)
[2022-12-29] MEDS ORDERED: dexAMETHasone 4 MG TAB PO SCH (08:00)
[2022-12-29] MEDS ORDERED: LOSARTAN POTASSIUM 50 MG TAB PO SCH (09:00)
[2022-12-29] MEDS ORDERED: MULTIVITAMIN TAB PO SCH (09:00)
[2022-12-29] MEDS ORDERED: ATORVASTATIN 40 MG TAB PO SCH (09:00)
[2022-12-29] MEDS ORDERED: amLODIPine BESYLATE 5 MG TAB PO SCH (09:00)
== END 2022-12-29 11:56 | disposition home or self-care (01) ==
LOC: 3E 06:00 → ASU 06:00